=== PATIENT | female | born 1965 | race Caucasian/White ===

== ENCOUNTER 2025-07-21 18:02 | Emergency (ER) | payer OTHER ==
[2025-07-21] MEDS: Diphtheria,Pertussis(Acell),Tetanus Vaccine 0.5 ML Syringe IM ONE (18:57)
[2025-07-21] MEDS: Ondansetron 4 MG Tab.DIS PO ONE (19:22)
[2025-07-21] MEDS: cefTRIAXone 1 GM, Lidocaine 1% 2.1 ML IM ONE (19:23)
[2025-07-21] MEDS: Bacitracin Oint 1 GM U/D Packet TOP ONE (19:24)
== END 2025-07-21 20:13 | disposition home or self-care (01) ==
LOC: JP.ED 18:02
DX: S61.452A Open bite of left hand, initial encounter (principal); S61.252A Open bite of right middle finger without damage to nail, initial encounter; Z91.018 Allergy to other foods; W54.0XXA Bitten by dog, initial encounter
CPT/HCPCS: 73130-26-LT; 73130-LT; 96372; 99283; A9270-GY; J0696; J2003; Q0162